=== PATIENT | female | born 1980 | race American Indian/Alaskan Native ===

== ENCOUNTER 2018-02-11 13:13 | Emergency (ER) | payer MEDICAID, OTHER ==
[2018-02-11 13:13] VITALS: BMI 52.3
[2018-02-11 13:33] VITALS: RESP 18
[2018-02-11] MEDS ORDERED: Sodium Chloride 0.9% 1,000 ML IV ONE (14:11)
[2018-02-11] MEDS ORDERED: Aluminum Hydroxide/Magnesium Hydroxide Susp (30 mL) PO STA (14:25)
--- NOTE | 2018-02-11 14:39 | C.PDOC ---
History Of Present Illness 37yo obese female with history of gastric bypass surgery, PCOS, presents to ED with complaints of epigastric abdominal pain for the past day. She states the pain is intermittent and like a burning sensation; patient states the pain at worst is 10/10 and currently is 7/10. She reports taking over the counter gas medications with ? relief. She also reports associated sweats, nausea but denies any fever, vomiting or diarrhea. She reports the symptoms are worse after eating food. No other complaints. Time Seen by Provider: 02/11/18 13:46 Chief Complaint (Nursing): Abdominal Pain History Per: Patient History/Exam Limitations: no limitations Onset/Duration Of Symptoms: Days (1) Current Symptoms Are (Timing): Still Present Location Of Pain/Discomfort: Epigastric Quality Of Discomfort: Burning, "Pain" Associated Symptoms: Nausea, Other (sweats). denies: Fever, Chills, Vomiting Additional History Per: Patient Past Medical History Reviewed: Historical Data, Nursing Documentation, Vital Signs Vital Signs: Last Vital Signs Temp 99.1 F 02/11/18 13:29 Pulse 86 02/11/18 13:29 Resp 18 02/11/18 13:29 BP 133/88 02/11/18 13:29 Pulse Ox 96 02/11/18 18:38 - Medical History PMH: Denies: Chronic Kidney Disease Other Surgeries: gastric bypass - [facility] Procedures ESOPHAGOGASTRODUODENOSCOPY [EGD] W/CLOSED BIOPSY (01/02/98) REMOV INTRALUM EAR FB (08/28/14) Family History: States: Other Other Family History: brain aneurysm - Social History Hx Tobacco Use: No Hx Alcohol Use: No Hx Substance Use: No - Immunization History Hx Tetanus Toxoid Vaccination: Yes Review Of Systems Except As Marked, All Systems Reviewed And Found Negative. Constitutional: Positive for: Sweats. Negative for: Fever, Chills Cardiovascular: Negative for: Chest Pain Respiratory: Negative for: Shortness of Breath Gastrointestinal: Positive for: Nausea, Abdominal Pain. Negative for: Vomiting , Diarrhea Genitourinary: Negative for: Dysuria, Hematuria Physical Exam - Physical Exam Appears: Non-toxic, No Acute Distress, Other (morbidly obese, uncomfortable) Skin: Normal Color, Warm, Dry Head: Atraumatic, Normacephalic Eye(s): bilateral: Normal Inspection Neck: Normal ROM, Supple Chest: Symmetrical Cardiovascular: Rhythm Regular Respiratory: Normal Breath Sounds Gastrointestinal/Abdominal: Soft, Tenderness (epigastric tenderness to palpation. (-) Palomares's sign, (-) Right upper quadrant tenderness), No Mass, No Guarding, No Rebound Back: Normal Inspection, No CVA Tenderness, No Vertebral Tenderness Extremity: Normal ROM, No Pedal Edema Neurological/Psych: Oriented x3 ED Course And Treatment - Laboratory Results Result Diagrams: 02/11/18 15:34 02/11/18 16:33 Lab Interpretation: Normal (ua neg. trop neg.) Urine POC: Negative ECG: Interpreted By Me ECG Rhythm: Sinus Rhythm ECG Interpretation: Normal Rate From EC O2 Sat by Pulse Oximetry: 96 (RA) Pulse Ox Interpretation: Normal - Radiology CXR: Interpreted by Me CXR Interpretation: Yes: No Acute Disease - Other Rad abd x 2 X-Ray: Interpreted by Me (+ stool throughout colon) Reevaluation Time: 18:38 Reassessment Condition: Improved Medical Decision Making Medical Decision Making: Impression: Epigastric abdominal pain Differential: Cholecystitis, cholelithaisis, appendicitis, gastric sleeve complication Plan: -- Labs -- Urinalysis -- CT Abdomen/Pelvis -- Maalox 30mlPO -- Pepcid 20mgPO -- IV FLuids -- Zofran 4mg IV Progress: small hiatal hernia vs constipation causing colicky whole abd discomfort. 1801 CT Abdomen/Pelvis FINDINGS: LOWER THORAX: Heart is mildly enlarged. No significant pericardial effusion. . There is a small hiatal hernia with wall thickening of the distal esophagus likely due to protrusion of gastric mucosa. Esophagitis or other intrinsic/ invasive wall lesion not excluded. Lung bases clear. LIVER: Liver is upper limits of normal measuring approximately 18 cm in CC dimension. No obvious hepatic mass collection or calcification. GALLBLADDER AND BILE DUCTS: Gallbladder physiologically distended. No evidence of intraluminal gallbladder calculi. PANCREAS: Unremarkable. No mass. No ductal dilatation. SPLEEN: Unremarkable. No splenomegaly. ADRENALS: Unremarkable. KIDNEYS AND URETERS: Unremarkable. No stone or hydronephrosis. BLADDER: Urinary bladder incompletely distended which in part accounts for thick-walled appearance however the possibility of a cystitis not excluded. REPRODUCTIVE: Unremarkable. APPENDIX: The appendix is not seen with complete certainty however no obvious inflammatory changes right lower quadrant of the abdomen. BOWEL: The evaluation of the bowel is limited due to the lack of oral contrast material. Postoperative changes of gastric sleeve. . Visualized loops of small bowel exhibit normal contour and caliber. No evidence of acute mechanical small bowel obstruction. Stool and air seen throughout the large bowel. PERITONEUM: Unremarkable. No fluid collection. No free air. Small fat containing umbilical hernia. LYMPH NODES: Unremarkable. No enlarged lymph nodes. VASCULATURE: Unremarkable. No aortic aneurysm. BONES: Multilevel degenerative spondylosis of the lower thoracic and lumbar spine. OTHER FINDINGS: None. IMPRESSION: There is a small hiatal hernia with wall thickening of the distal esophagus likely due to protrusion gastric mucosa however esophagitis or other intrinsic/ invasive wall lesion not excluded. Postoperative changes of gastric sleeve as described. Disposition Doctor Will See Patient In The: Office Counseled Patient/Family Regarding: Studies Performed, Diagnosis - Disposition Disposition: HOME/ ROUTINE Disposition Time: 18:38 Condition: GOOD Forms: [facility] (Chinese) - Clinical Impression Clinical Impression: Abdominal pain - Scribe Statement The provider has reviewed the documentation as recorded by the [employer] (Wendie Jordan) Provider Attestation: All medical record entries made by the Gio were at my direction and personally dictated by me. I have reviewed the chart and agree that the record accurately reflects my personal performance of the history, physical exam, medical decision making, and the department course for this patient. I have also personally directed, reviewed, and agree with the discharge instructions and disposition.
[2018-02-11] MEDS ORDERED: Sodium Chloride 0.9% 1,000 ML ONE ×2 (14:42→15:37)
[2018-02-11] MEDS ORDERED: Aluminum Hydroxide/Magnesium Hydroxide Susp (30 mL) ONE (14:42)
[2018-02-11 14:49] LABS: HCG,QUALITATIVE URINE NEGATIVE (NEGATIVE)
[2018-02-11 14:54] LABS: SQUAMOUS EPITHIAL 1 /hpf (0-5); URINE BILIRUBIN NEGATIVE (NEGATIVE); URINE BLOOD NEGATIVE (NEGATIVE); URINE CLARITY Hazy (Clear); URINE COLOR Yellow (YELLOW); URINE GLUCOSE (UA) NORMAL (Normal); URINE LEUKOCYTE ESTERASE NEG Leu/uL (Negative); URINE PROTEIN NEGATIVE (NEGATIVE); URINE UROBILINOGEN NORMAL mg/dL (0.2-1.0)
[2018-02-11] MEDS ORDERED: Alum-Mag Hydrox-Simethicone Susp (30 mL) ONE (15:36)
[2018-02-11 15:42] LABS: BASO # 0.1 K/uL (0.0-0.2); BASO % 0.9 % (0.0-2.0); EOS # 0.1 K/uL (0.0-0.7); EOS % 2.1 % (0.0-4.0); HEMOGLOBIN 11.4 g/dL (11.0-16.0); LYMPH % 28.7 % (20.0-40.0); MEAN CELL VOLUME 70.3 fL (81.0-99.0); MEAN CORPUSCULAR HEMOGLOBIN 22.6 pg (27.0-31.0); MEAN CORPUSCULAR HGB CONC 32.1 g/dL (33.0-37.0); MONO # 0.5 K/uL (0.0-0.8); MONO % 7.2 % (0.0-10.0); NEUT # 4.2 K/uL (1.8-7.0); NEUT % 61.1 % (50.0-75.0); RBC 5.03 Mil/uL (3.80-5.20); RED CELL DISTRIBUTION WIDTH 17.2 % (11.5-14.5)
[2018-02-11 16:55] LABS: GFR AFRICAN-AMERICAN > 60; GFR NON-AFRICAN AMERICAN > 60
[2018-02-11 17:09] LABS: ALBUMIN 3.9 g/dL (3.5-5.0); ALT/SGPT 27 U/L (9-52); AST/SGOT 29 U/L (14-36); BLOOD UREA NITROGEN 14 mg/dL (7-17); CALCIUM 9.2 mg/dl (8.6-10.4); LIPASE 84 U/L (23-300)
[2018-02-11] MEDS ORDERED: Iodixanol 320 MG/ML 100 ML BOTTLE IV ONE (17:26)
--- NOTE | 2018-02-11 18:32 | CT ---
PROCEDURE: CT abdomen pelvis dated 02/11/2018 HISTORY: Epigastric pain, h/o sleeve and GB stones COMPARISON: No prior TECHNIQUE: Contiguous axial images of the abdomen and pelvis performed following intravenous injection of approximately 100 cc Visipaque 320 contrast material. Additional 2D sagittal and coronal reformats generated. This CT exam was performed using one or more of the following dose reduction techniques: Automated exposure control, adjustment of the mA and/or kV according to patient size, and/or use of iterative reconstruction technique. Radiation dose: Total exam DLP = 1197.03 mGy-cm. FINDINGS: LOWER THORAX: Heart is mildly enlarged. No significant pericardial effusion. . There is a small hiatal hernia with wall thickening of the distal esophagus likely due to protrusion of gastric mucosa. Esophagitis or other intrinsic/invasive wall lesion not excluded. Lung bases clear. LIVER: Liver is upper limits of normal measuring approximately 18 cm in CC dimension. No obvious hepatic mass collection or calcification. GALLBLADDER AND BILE DUCTS: Gallbladder physiologically distended. No evidence of intraluminal gallbladder calculi. PANCREAS: Unremarkable. No mass. No ductal dilatation. SPLEEN: Unremarkable. No splenomegaly. ADRENALS: Unremarkable. KIDNEYS AND URETERS: Unremarkable. No stone or hydronephrosis. BLADDER: Urinary bladder incompletely distended which in part accounts for thick-walled appearance however the possibility of a cystitis not excluded. REPRODUCTIVE: Unremarkable. APPENDIX: The appendix is not seen with complete certainty however no obvious inflammatory changes right lower quadrant of the abdomen. BOWEL: The evaluation of the bowel is limited due to the lack of oral contrast material. Postoperative changes of gastric sleeve. . Visualized loops of small bowel exhibit normal contour and caliber. No evidence of acute mechanical small bowel obstruction. Stool and air seen throughout the large bowel. PERITONEUM: Unremarkable. No fluid collection. No free air. Small fat containing umbilical hernia. LYMPH NODES: Unremarkable. No enlarged lymph nodes. VASCULATURE: Unremarkable. No aortic aneurysm. BONES: Multilevel degenerative spondylosis of the lower thoracic and lumbar spine. OTHER FINDINGS: None. IMPRESSION: There is a small hiatal hernia with wall thickening of the distal esophagus likely due to protrusion gastric mucosa however esophagitis or other intrinsic/invasive wall lesion not excluded. Postoperative changes of gastric sleeve as described.
[2018-02-11 18:50] VITALS: BP 136/79; PULSE 82; TEMP 98.7; O2SAT 98
[2018-02-11] MEDS ORDERED: Magnesium Citrate Oral SOL (300 ml) PO ONE (18:55)
[2018-02-11] MEDS ORDERED: Magnesium Citrate Oral SOL (300 ml) ONE (18:59)
--- NOTE | 2018-02-12 08:24 | RAD ---
Abdomen four views History: Abdominal pain. Comparison: None available. Findings: Lung courtney are clear. Mild venous congestion. Heart size within normal limits. Degenerative changes in the spine. Calcified phleboliths in the pelvis. Moderate fecal retention in the colon. No evidence for gross obstruction. Impression: Fecal retention in the colon.
--- NOTE | 2018-02-13 12:17 | CARD ---
APPROVED REPORT EKG Measurement Heart [id number] <Conclusion> Normal sinus rhythm Normal ECG
== END 2018-02-11 18:58 | disposition home or self-care (01) ==
LOC: C.ER 13:13
DX: R10.13 Epigastric pain (principal)
CPT/HCPCS: 74022; 74177; 80053; 81001; 83690; 84484; 84703; 85025; 85378; 93005; 96361; 96374; 99285; J2405; J7030; Q9967